=== PATIENT | female | born 1975 | race African-American/Black ===

== ENCOUNTER 2024-08-27 07:52 | Day surgery (SDC) | payer MEDICARE, MEDICAID ==
[2024-08-19 14:56] LABS: Urine Bacteria None Seen /hpf (None Seen)
[2024-08-19 15:00] LABS: Basophils # (auto) 0.1 10 ^3/uL (0-0.2); Basophils % (auto) 1.1 % (0.0-2.0); Eosinophils # (auto) 0.1 10 ^3/uL (0-0.8); Eosinophils % (auto) 1.2 % (0.0-7.0); Hematocrit 44.5 % (36.0-46.0); Lymphocytes # (auto) 2.1 10 ^3/uL (0.4-5.4); Lymphocytes % (auto) 21.9 % (10.0-50.0); Mean Corpuscular Hemoglobin 28.7 pg (28.0-32.0); Mean Corpuscular Hgb Conc. 33.6 g/dL (32.0-36.0); Mean Corpuscular Volume 85.4 fL (80.0-100.0); Monocytes # (auto) 0.8 10 ^3/uL (0-1.3); Monocytes % (auto) 8.8 % (0.0-12.0); Neutrophils # (auto) 6.5 10 ^3/uL (1.6-8.6); Nucleated Red Blood Cells % 0.1 %; Platelet Count (auto) 312 10^3/uL (140-450); Red Blood Cells 5.22 10^6/uL (4.0-5.20); White Blood Cell 9.6 10^3/uL (4.4-10.8)
[2024-08-19 15:21] LABS: Urine Blood Negative /uL (Negative); Urine Clarity Clear (Clear); Urine Color Colorless (Yellow); Urine Protein, UAD Negative (Negative); Urine Specific Gravity 1.013 (1.001-1.035); Urine Urobilinogen Normal (Negative); Urine WBC <1 /hpf (0 - 5)
[2024-08-19 15:22] LABS: Alanine Aminotransferase 22 U/L (7-40); Anion Gap 4 (5-15); Aspartate Aminotransferase 17 U/L (13-40); BUN/Creatinine Ratio 16.7 (10.0-20.0); Bilirubin, Total 0.5 mg/dL (0.2-1.0); Blood Urea Nitrogen 18 mg/dL (9-23); Chloride 101 mmol/L (98-107); Glucose 81 mg/dL (74-106); Potassium 3.6 mmol/L (3.5-5.1); Sodium 138 mmol/L (136-145); Total Protein 7.9 g/dL (5.7-8.2)
[2024-08-19 15:23] LABS: Alkaline Phosphatase 121 U/L (46-116); Carbon Dioxide 33 mmol/L (20-31)
[2024-08-19 15:24] LABS: Albumin 4.8 g/dL (3.2-4.8); Calcium 10.5 mg/dL (8.7-10.4)
[2024-08-19 15:32] LABS: Partial Thromboplastin Time 26.2 SEC (24.5-34.5); Prothrombin Time 10.6 sec (9.3-11.8)
[~2024-08-27] VITALS: Ht 160 cm; Wt 97.5 kg
[~2024-08-27 07:52] MED LIST: ACET-1080 PO; ACYC400T16 PO; ALBUAER3 IN; BUDE1AER5 IN; BUSP5TAB51 PO; CARV6.2551 PO; CHOL100047 PO; EZET10TA22 PO; FEXO-42 PO; FLUO20TA42 PO; FURO40TA4 PO; GABA-1250 PO; GUAI120018 PO; HYDR12.59 PO; LOSA-534 PO; MAGN1CAP2 PO; MONT-8 OR; PANT40TA2 PO; POTA-220 PO; PRAV20TA3 PO; TRAM50TA2 PO; [UNRECOGNIZED DRUG - CODE] PO
[2024-08-27] MEDS ORDERED: MIDAZOLAM HCL 2MG/2ML 2ml VIAL (1mg/ml) ONE (08:56)
[2024-08-27] MEDS ORDERED: fentaNYL CITRATE 100 MCG/2 ML VL ONE (08:56)
[2024-08-27] MEDS ORDERED: ONDANSETRON HCL 4 MG/2 ML VIAL ONE (08:57)
[2024-08-27] MEDS ORDERED: SODIUM CHLORIDE LOCK 10 ML ONE (08:57)
[2024-08-27] MEDS ORDERED: LIDOCAINE 1% INJ PF 5ML AMP ONE (08:57)
[2024-08-27] MEDS ORDERED: PROPOFOL 10 MG/ML 20 ML IV ONE (08:57)
[2024-08-27] MEDS ORDERED: MEPERIDINE HCL (50 MG/ML) 1 ML VIAL ONE (08:57)
[2024-08-27] MEDS ORDERED: fentaNYL CITRATE 100 MCG/2 ML VL IV PRN (09:00)
[2024-08-27] MEDS ORDERED: MORPHINE SULFATE INJ 2 MG/ml SYRG IV PRN (09:00)
[2024-08-27] MEDS ORDERED: HYDROmorphone HCL 2 MG/ML VL/or syr IV PRN ×2 (09:00)
[2024-08-27] MEDS ORDERED: METOCLOPRAMIDE HCL 5MG/ml INJ 2ml VIAL IV ONE (09:00)
[2024-08-27] MEDS: LIDOCAINE VISCOUS 2% 15ML UD ONE (09:06)
[2024-08-27 09:33] VITALS: TEMP 98.4; O2SAT 100
--- NOTE | 2024-08-27 09:33 | DVHHP2 ---
GI H&P Pre-Op Assessment Date: 08/27/24 Chief complaint: colon cancer screening, abdominal pain HPI: per clinic note Past medical history: per clinic note Past surgical history: per clinic note Family history: per clinic note Physical exam: General: NAD, AAOX3 HEENT: PERRL, no scleral icterus, normal hearing, gums without lesions or bleeding, oropharynx clear without erythema or exudate. Neck: Supple without enlargement of the thyroid, or lymphadenopathy. Chest: Normal size and shape, no tenderness, lung blair clear to auscultation and percussion, nonlabored breathing. Heart: RRR, no murmur Abdomen: non-distended, no tenderness to palpation, +BS, no hepatosplenomegaly Extremities: no edema Neurological: CN II-XII intact, sensation intact in all extremities, 5+ strength in all extremities Skin: No rashes, No jaundice Assessment: - colon cancer screening - abdominal pain Plan: - EGD - Colonoscopy - Risks (bleeding, infection, perforation, reaction to sedation medications and cardiopulmonary arrest) and benefit of the procedure were explained to patient. Patient agrees to undergo the procedure. CY SHOOK MD Aug 27, 2024 09:33
--- NOTE | 2024-08-27 09:34 | DVHOP2 ---
Operative Report DATE OF OPERATION: 08/27/24 PROCEDURE: Upper Endoscopy. PREOPERATIVE INDICATION: The patient is a 48 -year-old female undergoing endoscopy for epigastric pain. POSTOPERATIVE DIAGNOSES: 1. Slight gastritis PROCEDURE PERFORMED BY: Shane Barragan SCOPE: Olympus videoendoscope. ASA CLASS: 3 PREOPERATIVE MEDICATIONS: MAC with Dr Tiwari PROCEDURE IN DETAIL: After obtaining an informed consent, the patient was placed on left lateral decubitus position. The patient was then sedated with the above medications. A bite block was placed between her teeth. The endoscope was then passed through the oropharynx, into the esophagus, and through the stomach and pylorus up to the second and third part of the duodenum. The duodenum was normal appearance. There was slight gastritis. Gastric biopsies were obtained. The GE junction was normal appearance at 35 cm. The esophagus was normal in appearance. The endoscope was then withdrawn. The patient tolerated the procedure well without difficulty. COMPLICATIONS : None SPECIMENS: Gastric biopsies DISPOSITION: D/C to home PLAN: 1. Await for biopsy result 2. Continue Protonix. SHANE BARRAGAN MD Aug 27, 2024 09:34
--- NOTE | 2024-08-27 09:36 | DVHOP2 ---
Operative Report DATE OF OPERATION: 08/27/24 PROCEDURE: Colonoscopy. PREOPERATIVE INDICATION: The patient is a 48 -year-old female undergoing colonoscopy for colon cancer screen. POSTOPERATIVE DIAGNOSES: 1. Melanosis Coli 2. Few small diverticulosis PROCEDURE PERFORMED BY: Shane Barragan M.D. SCOPE: Olympus videocolonoscope. ASA CLASS: 3 PREOPERATIVE MEDICATIONS: MAC with Dr Tiwari PROCEDURE IN DETAIL: After obtaining an informed consent, the patient was plac ed on left lateral decubitus position. She was then sedated with the above medications. A rectal examination was performed that was normal. The colonoscope was then passed through the anus into the rectosigmoid and through the descending, transverse, and ascending colon up to the cecum with visualization of the appendiceal orifice, base of the cecum and the ileocecal valve. No mass or polyp was observed. There was melanosis coli. There was a few small diverticulosis. The colonoscope was then withdrawn. The patient tolerated the procedure well without difficulty. WITHDRAWAL TIME: 6 minutes QUALITY OF THE PREP: Hallam Bowel Prep score: 7 COMPLICATIONS : None SPECIMENS: None DISPOSITION: D/C to home PLAN: 1. Repeat colonoscopy in 10 years for colon cancer screening. SHANE BARRAGAN MD Aug 27, 2024 09:36
--- NOTE | 2024-08-27 09:36 | DVHDS2 ---
Physician Discharge Progress N Final Diagnosis: Gastritis Melanosis coli, diverticulosis Operations or Procedures: Operations or Procedures EGD with biopsy Colonoscopy Condition on Discharge: Good Disposition: Home Discharge Instructions: Diet: Regular Activity: No Restrictions, As Tolerated Medications: Resume previous home medications Follow Up Care: Discharge Statement: "Patient was advised to return to the ER or call 911 if any headaches, dizziness, shortness of breath, chest pain, abdominal pain, bleeding, fevers, or worsening of medical condition. Patient was counseled about treatment plan, medications, possible side effects, patientverbalized understanding. All questions were answered to the best of my ability. This discharge took greater then 30 minutes in planning, reviewing documentation, counseling the patient, and discussing with other team members." CY SHOOK MD Aug 27, 2024 09:36
[2024-08-27 10:03] VITALS: BP 120/69; PULSE 78; RESP 21; O2SAT 97
== END 2024-08-27 13:00 | disposition home or self-care (01) ==
LOC: SUR 07:52
PROVIDERS: ATTEND Internal Medicine Gastroenterology
DX: K62.5 Hemorrhage of anus and rectum (principal); K57.30 Diverticulosis of large intestine without perforation or abscess without bleeding; K63.89 Other specified diseases of intestine; K29.50 Unspecified chronic gastritis without bleeding; B96.81 Helicobacter pylori [H. pylori] as the cause of diseases classified elsewhere; K21.9 Gastro-esophageal reflux disease without esophagitis; R10.13 Epigastric pain; I10 Essential (primary) hypertension; I25.2 Old myocardial infarction; E78.5 Hyperlipidemia, unspecified; J45.909 Unspecified asthma, uncomplicated; G47.30 Sleep apnea, unspecified; F41.8 Other specified anxiety disorders; Z87.01 Personal history of pneumonia (recurrent); Z98.890 Other specified postprocedural states; Z88.5 Allergy status to narcotic agent; Z88.8 Allergy status to other drugs, medicaments and biological substances
CPT/HCPCS: 36415; 43239; 45378; 80053; 81001; 84702; 85025; 85610; 85730; 88305; 88312; 88342; J2175; J2250; J2405; J2704; J3010; J7030